=== PATIENT | female | born 1995 | race Caucasian/White ===

== ENCOUNTER 2017-09-13 16:36 | Emergency (ER) | payer OTHER ==
[2017-09-13 18:36] LABS: URINE BLOOD (Dip) POC Trace-intact (NEGATIVE); URINE GLUCOSE (Dip) POC Negative (NEGATIVE); URINE KETONES (Dip) POC Trace (NEGATIVE); URINE LEUKOCYTE EST (Dip) POC 2+ (NEGATIVE); URINE NITRITE (Dip) POC Negative (NEGATIVE); URINE TOTAL PROTEIN POC 1+ (NEGATIVE)
[2017-09-13 18:36] LABS: URINE PH (Dip) POC 6.5 (5.0-8.5)
[2017-09-13] MEDS: CEFTRIAXONE 1 GM INJ IM (19:05)
[2017-09-13] MEDS: KETOROLAC 60 MG INJ IM (19:05)
== END 2017-09-13 19:43 | disposition home or self-care (01) ==
LOC: FTE 16:36
DX: N39.0 Urinary tract infection, site not specified (principal)
CPT/HCPCS: 81003; 81025; 96372; 99284-25

== ENCOUNTER 2018-11-08 10:17 | Emergency (ER) | payer OTHER ==
[2018-11-08] MEDS: ACETAMINOPHEN 325 MG TAB PO (11:03)
[2018-11-08] MEDS: SOD CHLORIDE 0.9% 1,000 ML IV (11:04)
[2018-11-08 11:06] LABS: ADD MAN DIFF? NO
[2018-11-08 11:10] LABS: BASOPHILS % 0.3 % (0.0-2.0); EOSINOPHILS % 0.2 % (0.0-7.0); HEMOGLOBIN 13.2 g/dl (12.0-16.0); LYMPHOCYTES # 1.1 10^3/ul (0.8-2.9); LYMPHOCYTES % 9.2 % (15.0-51.0); MEAN CORPUSCULAR HEMOGLOBIN 31.7 pg (29.0-33.0); MEAN CORPUSCULAR HGB CONC 34.7 g/dl (32.0-37.0); MEAN CORPUSCULAR VOLUME 91.1 fl (82.0-101.0); MEAN PLATELET VOLUME 9.6 fl (7.4-10.4); MONOCYTE # 0.6 10^3/ul (0.3-0.9); MONOCYTES % 5.1 % (0.0-11.0); NEUTROPHIL # 10.1 10^3/ul (1.6-7.5); NEUTROPHILS % 84.8 % (39.0-77.0); PLATELET COUNT 306 10^3/UL (140-415); RED BLOOD COUNT 4.17 10^6/ul (4.20-5.40); RED CELL DISTRIBUTION WIDTH 12.6 % (11.5-14.5)
[2018-11-08 11:10] LABS: WHITE BLOOD COUNT 11.9 10^3/ul (4.8-10.8)
[2018-11-08 11:16] LABS: OCCULT BLOOD STOOL NEGATIVE (NEGATIVE)
[2018-11-08 11:26] LABS: ADD UMIC NO; UR ASCORBIC ACID 40 mg/dL (NEGATIVE); UR BACTERIA FEW /HPF (NONE SEEN); UR BILIRUBIN (Dip) NEGATIVE (NEGATIVE); UR BLOOD (Dip) NEGATIVE (NEGATIVE); UR CLARITY SLIGHTLY CLOUDY (CLEAR); UR COLOR AMBER (YELLOW); UR GLUCOSE (Dip) NEGATIVE (NEGATIVE); UR KETONES (Dip) 2+ mg/dL (NEGATIVE); UR LEUKOCYTE ESTERASE (Dip) NEGATIVE Leu/ul (NEGATIVE); UR MUCUS MANY /HPF (NONE SEEN); UR NITRITE (Dip) NEGATIVE (NEGATIVE); UR NONSQUAMOUS EPITHELIAL CELL <1 /HPF (NONE SEEN); UR RBC 3 /HPF (0-5); UR SPECIFIC GRAVITY (Dip) 1.024 (1.003-1.030); UR SQUAMOUS EPITHELIAL CELL FEW /HPF (FEW); UR TOTAL PROTEIN (Dip) NEGATIVE (NEGATIVE); UR UROBILINOGEN (Dip) 1+ mg/dL (NEGATIVE); UR WBC 4 /HPF (0-5)
[2018-11-08 11:30] LABS: ALANINE AMINOTRANSFERASE 19 IU/L (13-69); ALBUMIN 4.2 g/dl (3.3-4.9); ALBUMIN/GLOBULIN RATIO 1.16; ALKALINE PHOSPHATASE 72 IU/L (42-121); ANION GAP 12 (5-13); ASPARTATE AMINO TRANSFERASE 24 IU/L (15-46); BILIRUBIN,INDIRECT 0.8 mg/dl (0-1.1); BILIRUBIN,TOTAL 0.8 mg/dl (0.2-1.3); BLOOD UREA NITROGEN 6 mg/dl (7-20); CALCIUM 9.6 mg/dl (8.4-10.2); CARBON DIOXIDE 23 mmol/L (21-31); CHLORIDE 105 mmol/L (97-110); CREATININE 0.45 mg/dl (0.44-1.00); Estimated GFR > 60 mL/min (>60); GLUCOSE 83 mg/dl (70-220); LIPASE 93 U/L (23-300); POTASSIUM 3.6 mmol/L (3.5-5.1); SODIUM 140 mmol/L (135-144); TOTAL PROTEIN 7.8 g/dl (6.1-8.1)
== END 2018-11-08 12:47 | disposition home or self-care (01) ==
LOC: FTE 10:17
DX: O26.892 Other specified pregnancy related conditions, second trimester (principal); R10.9 Unspecified abdominal pain; Z3A.17 17 weeks gestation of pregnancy
CPT/HCPCS: 36415; 76805; 80053; 81001; 81003; 82270; 83690; 84702; 85025; 86900; 86901; 96360; 96361; 99285-25